=== PATIENT | male | born 1955 | race Caucasian/White ===

== ENCOUNTER 2016-11-25 16:35 | Emergency (ER) | payer SELFPAY ==
[~2016-11-25] VITALS: Ht 175.3 cm; Wt 120.5 kg
[2016-11-25] MEDS ORDERED: NITROSTAT0.4 M1 SL (16:46)
[2016-11-25] MEDS ORDERED: CHILDREN'S ASPI81 M1 PO (16:47)
[2016-11-25] MEDS ORDERED: PROVENTIL0.09 MG/A1 IH (16:51)
[2016-11-25] MEDS ORDERED: PROAIR HFA0.09 MG/AC IH (17:10)
[2016-11-25 19:40] VITALS: BP 126/80
== END 2016-11-25 19:40 | disposition left against medical advice (07) ==
LOC: ED 16:35
DX: M54.6 Pain in thoracic spine (principal); R74.8 Abnormal levels of other serum enzymes; R07.1 Chest pain on breathing; R07.9 Chest pain, unspecified; R31.9 Hematuria, unspecified; W22.8XXA Striking against or struck by other objects, initial encounter; I25.10 Atherosclerotic heart disease of native coronary artery without angina pectoris; I11.0 Hypertensive heart disease with heart failure; I50.9 Heart failure, unspecified; J44.9 Chronic obstructive pulmonary disease, unspecified; K21.9 Gastro-esophageal reflux disease without esophagitis; I25.2 Old myocardial infarction
CPT/HCPCS: J1885; J3010; J7030; Q9967